=== PATIENT | female | born 1980 | race Caucasian/White ===

== ENCOUNTER → 2020-11-05 | Outpatient (CLI) | payer OTHER ==
[~2020-11-05] MED LIST: BROMFED DM COU473 ML PO; CIPRO500 MG PO; FLAGYL500 MG PO; NORFLEX 100 MG100 MG PO; PREDNISONE 50 M50 MG PO; Voltaren Gel 1% TOP
[2020-11-05 15:51] LABS: HEMOGLOBIN 15.8 gm/dl (12.3-15.3); RED BLOOD COUNT 5.42 M/UL (4.00-5.10); WHITE BLOOD COUNT 14.5 K/UL (4.5-11.0)
[2020-11-05 16:16] LABS: BUN/CREATININE RATIO 15 (0-10)
[2020-11-06 10:14] LABS: VITAMIN D, 25-HYDROXY 15.4 ng/mL (30.0-100.0)
[2020-11-06 13:15] LABS: THYROXINE (T4) 8.4 ug/dL (4.5-12.0)
== END ==
LOC: LAB 13:43
PROVIDERS: Nurse Practitioner Family
DX: F41.9 Anxiety disorder, unspecified (principal); F32.9 Major depressive disorder, single episode, unspecified; R41.3 Other amnesia; Z13.1 Encounter for screening for diabetes mellitus; E55.9 Vitamin D deficiency, unspecified; Z98.890 Other specified postprocedural states
CPT/HCPCS: 36415; 80053; 80061; 83036; 84436; 84443; 84480; 85025

== ENCOUNTER 2020-11-19 13:10 | Emergency (ER) | payer OTHER ==
[~2020-11-19 13:10] MED LIST changes: -CIPRO500 MG PO; -FLAGYL500 MG PO
[2020-11-19 14:30] LABS: HEMOGLOBIN 16.4 gm/dl (12.3-15.3); RED BLOOD COUNT 5.52 M/UL (4.00-5.10); WHITE BLOOD COUNT 12.4 K/UL (4.5-11.0)
[2020-11-19 14:48] LABS: BUN/CREATININE RATIO 14 (0-10)
[2020-11-19] MEDS ORDERED: CIPRO500 MG PO (16:15)
[2020-11-19] MEDS ORDERED: FLAGYL500 MG PO (16:15)
== END 2020-11-19 17:08 | disposition home or self-care (01) ==
LOC: ER1 13:10
PROVIDERS: Emergency Medicine
DX: N76.0 Acute vaginitis (principal); N30.90 Cystitis, unspecified without hematuria
CPT/HCPCS: 80053; 81001; 83690; 84703; 85025; 96365; 96375; 99284; J0696; J2270; J2405; J7030; Q9967

== ENCOUNTER 2021-01-04 17:48 | Emergency (ER) | payer OTHER ==
[~2021-01-04 17:48] MED LIST changes: +CIPRO500 MG PO; +FLAGYL500 MG PO
== END 2021-01-04 19:00 | disposition home or self-care (01) ==
LOC: ER1 17:48
DX: M54.2 Cervicalgia (principal); G89.29 Other chronic pain; Z79.899 Other long term (current) drug therapy; Z88.8 Allergy status to other drugs, medicaments and biological substances; Z88.6 Allergy status to analgesic agent
CPT/HCPCS: 99283

== ENCOUNTER → 2021-05-19 | Outpatient (CLI) | payer OTHER | LOC: EMI 16:15 | DX: M25.511 Pain in right shoulder (principal); Z98.1 Arthrodesis status | CPT/HCPCS: 73221 ==